=== PATIENT | male | born 2000 | race Hispanic/Latino ===

== ENCOUNTER 2022-05-16 10:46 | Emergency (ER) | payer OTHER ==
[~2022-05-16] VITALS: Ht 175.3 cm; Wt 86.2 kg
[2022-05-16] MEDS ORDERED: HYDROCODON-ACE1 EA10 PO (12:18)
== END 2022-05-16 12:39 | disposition home or self-care (01) ==
LOC: ED 10:46
DX: S42.341A Displaced spiral fracture of shaft of humerus, right arm, initial encounter for closed fracture (principal); X58.XXXA Exposure to other specified factors, initial encounter
CPT/HCPCS: 29105; 73060; 73080; 99283-25